=== PATIENT | male | born 1975 | race Caucasian/White ===

== ENCOUNTER 2019-04-23 21:11 | Emergency (ER) | payer MEDICAID ==
[~2019-04-23] VITALS: Ht 172.7 cm; Wt 82.6 kg
[~2019-04-23 21:11] MED LIST: ACET500C5 PO; IBUP-1542 PO
[2019-04-23 21:13] VITALS: Ht 172.7 cm; Wt 82.6 kg
[2019-04-23] MEDS ORDERED: IBUPROFEN 800 MG TAB PO ONE (23:00)
[2019-04-24] MEDS ORDERED: ACET325T33 PO (01:02)
[2019-04-24] MEDS ORDERED: IBUP800T48 PO (01:02)
[2019-04-24] MEDS ORDERED: AZIT250T PO (01:02)
[2019-04-24] MEDS ORDERED: BENZ-6 PO (01:02)
[2019-04-24] MEDS ORDERED: PROM6.2515 PO (01:02)
--- NOTE | 2019-04-24 01:09 | ERD ---
ER Documentation Chief Complaint Chief Complaint FEVER AND ALY X 4 DAYS HPI 43-year-old male presenting with a fever and a headache x4 days. Patient has a mild cough with a sore throat. Positive runny nose with no abdominal pain. No ear pain. Normal urination bowel movement. Took Tylenol 5 hours prior to my evaluation. Denies medical problems. NKDA. Surgical history denies. Social history denies ROS All systems reviewed and are negative except as per history of present illness. Medications Home Meds Active Scripts Promethazine Hcl* (Promethazine Hcl* Syrup) 6.25 Mg/5 Ml Syrup, 6.25 MG PO Q6H PRN for COUGH, #100 ML Prov:ABHAY JOHNSON PA-C 04/24/19 Benzonatate* (Tessalon Perle*) 100 Mg Capsule, 100 MG PO Q8H PRN for COUGH, #30 CAP Prov:ABHAY JOHNSON PA-C 04/24/19 Azithromycin* (Zithromax*) 250 Mg Tablet, 250 MG PO .PérezPACK DIRECTED, #6 TAB TAKE 500 MG (2 TABS) THE FIRST DAY THEN 250 MG (1 TAB) DAYS 2-5 Prov:ABHAY JOHNSON PA-C 04/24/19 Acetaminophen* (Tylenol*) 325 Mg Tablet, 2 TAB PO Q6 PRN for PAIN AND OR ELEVATED TEMP, #20 TAB Prov:ABHAY JOHNSON PA-C 04/24/19 Ibuprofen* (Motrin*) 800 Mg Tab, 800 MG PO Q6, #30 TAB Prov:ABHAY JOHNSON PA-C 04/24/19 Ibuprofen* (Motrin*) 600 Mg Tab, 600 MG PO Q6, #30 TAB Prov:MARCO ANTONIO SERRATO PA-C 08/24/16 Ibuprofen* (Motrin*) 600 Mg Tab, 600 MG PO Q6H PRN for PAIN AND OR ELEVATED TEMP, #30 TAB Prov:NYLA VAUGHN NP 08/18/16 Reported Medications Acetaminophen* (Tylophen*) Unknown Strength Capsule, PO Q8H PRN for PAIN AND OR ELEVATED TEMP, #20 CAP 08/17/16 Allergies Allergies: Coded Allergies: No Known Drug Allergies (Verified Allergy, Mild, 04/23/19) PMhx/Soc History of Surgery: No Anesthesia Reaction: No Hx Neurological Disorder: No Hx Respiratory Disorders: No Hx Cardiac Disorders: No Hx Psychiatric Problems: No Hx Miscellaneous Medical Probl: No Hx Alcohol Use: No Hx Substance Use: No Hx Tobacco Use: No Smoking Status: Never smoker FmHx Family History: No diabetes, No coronary disease, No other Physical Exam Vitals Vital Signs Date Temp Pulse Resp B/P (MAP) Pulse Ox O2 O2 Flow FiO2 Time Delivery Rate 04/23/19 100.4 22:43 04/23/19 100.4 72 16 143/71 99 21:13 (95) Physical Exam GENERAL: The patient is well-appearing, well-nourished, in no acute distress HEENT: Atraumatic. Conjunctivae are pink. Pupils equal, round, and reactive to light. There is no scleral icterus. Tympanic membranes clear bilaterally. Oropharynx clear. NECK: C-spine is soft and supple. There is no meningismus. There is no cervical lymphadenopathy. CHEST: Clear to auscultation bilaterally. There are no rales, wheezes or rhonchi. HEART: Regular rate and rhythm. No murmurs, clicks, rubs or gallops. Result Diagram: 04/23/196 04/23/196 Results 24 hrs Laboratory Tests Test 04/23/19 22:46 White Blood Count 4.7 10^3/ul Red Blood Count 5.23 10^6/ul Hemoglobin 15.4 g/dl Hematocrit 45.6 % Mean Corpuscular Volume 87.2 fl Mean Corpuscular Hemoglobin 29.4 pg Mean Corpuscular Hemoglobin Concent 33.8 g/dl Red Cell Distribution Width 12.7 % Platelet Count 195 10^3/UL Mean Platelet Volume 9.4 fl Immature Granulocytes % 0.200 % Neutrophils % % Segmented Neutrophils % (Manual) 62 % Band Neutrophils % (Manual) 10 % Lymphocytes % % Lymphocytes % (Manual) 18 % Reactive Lymphocytes % (Manual) 2 % Monocytes % % Monocytes % (Manual) 7 % Eosinophils % % Basophils % % Metamyelocytes % (manual) 1 % Nucleated Red Blood Cells % 0.0 /100WBC Immature Granulocytes # 0.010 10^3/ul Neutrophils # 10^3/ul Neutrophils # (Manual) 2.9 10^3/ul Band Neutrophils # 0.4 10^3/ul Lymphocytes (Manual) 0.8 10^3/ul Lymphocytes # 10^3/ul Reactive Lymphocytes # 0.0 10^3/ul Monocytes # 10^3/ul Monocytes # (Manual) 0.3 10^3/ul Eosinophils # 10^3/ul Basophils # 10^3/ul Metamyelocytes # 0.0 10^3/ul Nucleated Red Blood Cells # 10^3/ul Platelet Estimate NORMAL Poikilocytosis 1+ Urine Color STRAW Urine Clarity CLEAR Urine pH 6.0 Urine Specific [place] 1.006 Urine Ketones NEGATIVE mg/dL Urine Nitrite NEGATIVE mg/dL Urine Bilirubin NEGATIVE mg/dL Urine Urobilinogen NEGATIVE mg/dL Urine Leukocyte Esterase NEGATIVE [place]/ul Urine Hemoglobin NEGATIVE mg/dL Urine Glucose NEGATIVE mg/dL Urine Total Protein NEGATIVE mg/dl Sodium Level 137 mmol/L Potassium Level 3.7 mmol/L Chloride Level 103 mmol/L Carbon Dioxide Level 21 mmol/L Anion Gap 13 Blood Urea Nitrogen 14 mg/dl Creatinine 0.88 mg/dl Est Glomerular Filtrat Rate mL/min > 60 mL/min Glucose Level 124 mg/dl Calcium Level 8.7 mg/dl Total Bilirubin 0.2 mg/dl Direct Bilirubin 0.00 mg/dl Indirect Bilirubin 0.2 mg/dl Aspartate Amino Transf (AST/SGOT) 70 IU/L Alanine Aminotransferase (ALT/SGPT) 78 IU/L Alkaline Phosphatase 79 IU/L Total Protein 8.1 g/dl Albumin 4.4 g/dl Globulin 3.70 g/dl Albumin/Globulin Ratio 1.18 Lipase 203 U/L Current Medications Medications Dose Sig/Jose Start Time Status Last (Trade) Ordered Route PRN Stop Time Admin Dose Reason Admin Ibuprofen 800 mg ONCE ONCE 04/23/19 DC 04/23/19 (Motrin) PO 23:00 22:43 04/23/19 23:01 Procedures/MDM ER course: Blood work within normal limits. X-ray read with Dr. Kike gardneronal atelectasis in the right lower lobe. Patient was discharged with report of medications. MDM: 43-year-old female presenting with fever. I have low suspicion for pneumonia however there is concern the atelectasis noted on chest x-ray so I will treat prophylactically. I have low suspicion for meningitis or sepsis. Patient's blood work is within normal limits and exam is non-concerning. Patient is discharged with supportive medications and told to follow-up with primary care within 1 to 2 days for close evaluation. Patient is told symptoms change or worsen to return immediately to the ER. All questions answered at discharge. Departure Diagnosis: Primary Impression: Cough Additional Impression: Fever Condition: Stable Patient Instructions: Cough, Chronic, Uncertain Cause, (Adult), Fever Control (Adult) Referrals: [facility] YOU HAVE RECEIVED A MEDICAL SCREENING EXAM AND THE RESULTS INDICATE THAT YOU DO NOT HAVE A CONDITION THAT REQUIRES URGENT TREATMENT IN THE EMERGENCY DEPARTMENT. FURTHER EVALUATION AND TREATMENT OF YOUR CONDITION CAN WAIT UNTIL YOU ARE SEEN IN YOUR DOCTORS OFFICE WITHIN THE NEXT 1-2 DAYS. IT IS YOUR RESPONSIBILITY TO MAKE AN APPOINTMENT FOR FOLOW-UP CARE. IF YOU HAVE A PRIMARY DOCTOR --you should call your primary doctor and schedule an appointment IF YOU DO NOT HAVE A PRIMARY DOCTOR YOU CAN CALL OUR PHYSICIAN REFERRAL HOTLINE AT IF YOU CAN NOT AFFORD TO SEE A PHYSICIAN YOU CAN CHOSE FROM THE FOLLOWING [facility] [address] [facility] [address] [facility] [facility] [address] [facility] [address] [facility] [address] [facility] [facility]. [address] Additional Instructions: FOLLOW UP WITH YOUR PRIMARY CARE PHYSICIAN TOMORROW.Return to this facility if you are not improving as expected. ABHAY JOHNSON PA-C Apr 24, 2019 01:09
[2019-04-24 01:25] VITALS: BP 133/62; PULSE 72; RESP 20
== END 2019-04-24 01:43 | disposition home or self-care (01) ==
LOC: FTE 21:11
DX: R05 Cough (principal)
CPT/HCPCS: 36415; 71045; 80053; 81003; 83690; 85025; Z7502; Z7610